=== PATIENT | female | born 1960 | race Caucasian/White ===

== ENCOUNTER 2017-03-01 05:17 | Inpatient (IN) | payer MEDICARE, SELFPAY ==
[~2017-03-01 05:17] MED LIST: ALEVE220 M3 PO; AMITRIPTYLINE H10 M1 PO; AMOXIL500 MG PO; CALCIUM 600 W/V1 TAB; CONCERTA54 MG PO; CRESTOR5 MG/TAB PO; DICYCLOMINE HCL20 M1 PO; EFFEXOR XR150 MG; FLEXERIL; FLEXERIL10 MG; FLORICET PO; GABAPENTIN300 M1 PO; LIDOCAINE HCL30 ML MM; LOVASTATIN10 M1 PO; NEURONTIN300 M1 PO; NEURONTIN300 MG PO; NORCO 5-325 TA1 EACH PO; NORCO 5/325 TAB1 TAB PO; OMEPRAZOLE20 M3 PO; PHENERGAN W/CO120 ML PO; PRISTIQ50 MG PO; REQUIP2 MG; RITALIN LA40 M1 PO; RITALIN20 M1 PO; RITALIN20 MG; TRAMADOL HCL50 MG; TUMS200 MG PO; VITAMIN D1000 UNI2 PO; WELLBUTRIN PO; WELLBUTRIN SR100 M2 PO; XANAX0.5 M1 PO; ZITHROMAX250MG Z-PAK PO; ZOFRAN ODT4 MG PO; ZYPREXA10 MG PO; ZYPREXA5 MG
--- NOTE | 2017-03-02 02:14 | NUR ---
2330 CHARTING ACCIDENTALLY ENTERED FOR 1130 TIME ON 03/01/17
[2017-03-02] MEDS ORDERED: HYDROCODON-ACE1 EA16 PO (15:01)
[2017-03-02] MEDS ORDERED: COLACE100 M1 PO (15:02)
[2017-03-02] MEDS ORDERED: PROTONIX40 M2 PO (15:02)
[2017-03-26] MEDS ORDERED: NAPROSYN500 M1 PO (22:39)
== END 2017-03-02 15:38 | DRG 328 ==
LOC: SHSB 05:17 → ORW 07:19 → BURN 09:44
PROVIDERS: ADMIT Surgery
PROC: 0BQS4ZZ (ICD-10-PCS; principal; 2017-03-01)
PROC: 0DV44ZZ Restriction of Esophagogastric Junction, Percutaneous Endoscopic Approach (ICD-10-PCS; 2017-03-01)
DX: K44.9 Diaphragmatic hernia without obstruction or gangrene (principal); F31.9 Bipolar disorder, unspecified; K21.9 Gastro-esophageal reflux disease without esophagitis; G25.81 Restless legs syndrome; Z87.891 Personal history of nicotine dependence
CPT/HCPCS: C9113; J0131; J0690; J1170; J1650; J2250; J2765; J3010; J7030

== ENCOUNTER 2017-03-05 12:30 | Inpatient (IN) | payer MEDICARE, SELFPAY ==
[~2017-03-05 12:30] MED LIST changes: +COLACE100 M1 PO; +HYDROCODON-ACE1 EA16 PO; +PROTONIX40 M2 PO
[2017-03-05 13:45] LABS: BASO % 0.2 % (0-2); EOS % 0.2 % (0-7); HCT-HEMATOCRIT 41.3 % (34.0-49.0); HGB-HEMOGLOBIN 14.6 gm/dl (12.0-15.5); IMMATURE GRANULOCYTES ABSOLUTE 0.02 tho/cmm (0-0.03); IMMATURE GRANULOCYTES PERCENT 0.2 % (0-0.3); LYMPH % 8.8 % (20-45); LYMPH ABSOLUTE COUNT 0.8 tho/cmm (0.8-4.5); MCH (MEAN CORPUSCULAR HGB) 32.4 pg (28.0-32.0); MCHC MEAN CORPUSCULAR HGB CONC 35.4 % (32.0-36.0); MCV (MEAN CELL VOLUME) 91.6 fl (82.0-96.0); MEAN PLATELET VOLUME 9.7 cmc (9.4-12.4); MONO % 6.4 % (0-12); MONOCYTE ABSOLUTE COUNT 0.6 tho/cmm (0.0-1.2); NEUTROPHIL ABSOLUTE COUNT 7.5 tho/cmm (1.6-8.0); NEUTROPHIL-AUTOMATED 7.5 tho/cmm (1.6-8.0); NEUTROPHILS % 84.2 % (40-80); PLATELET COUNT 238 tho/cmm (150-450); RED BLOOD COUNT 4.51 mil/cmm (4.00-5.20); RED CELL DISTRIBUTION WIDTH 13.3 % (12.4-16.4); WHITE BLOOD COUNT 8.9 tho/cmm (4.0-10.0)
[2017-03-05 13:50] LABS: URINE BILIRUBIN SMALL (NEG); URINE BLOOD LARGE (NEG); URINE GLUCOSE (UA) NEGATIVE (NEG); URINE KETONE MODERATE (NEG); URINE LEUKOCYTE ESTERASE POSITIVE (NEG); URINE NITRITE POSITIVE (NEG); URINE PROTEIN MODERATE (NEG)
[2017-03-05 13:52] LABS: URINE APPEARANCE HAZY; URINE COLOR BROWN
[2017-03-05 13:59] LABS: ALBUMIN 3.7 g/dl (3.5-5.0); ALKALINE PHOSPHATASE 72 U/L (33-138); ALT/SGPT 38 U/L (12-78); ANION GAP 15 mmol/L (0-20); AST/SGOT 37 U/L (10-40); BILIRUBIN,TOTAL 0.6 mg/dl (0-1.5); BLOOD UREA NITROGEN 10 mg/dl (6-24); CARBON DIOXIDE-VENOUS 24 mmol/L (22-32); CHLORIDE 102 mmol/l (96-110); CREATININE 0.91 mg/dl (0.50-1.10); GLUCOSE 107 mg/dL (70-110); LIPASE 200 U/L (73-393); POTASSIUM 3.6 mmol/L (3.7-5.1); SODIUM 137 mmol/L (135-145); eGFR VALUE FOR BLACK 80 mL/Min
[2017-03-05 14:01] LABS: URINE BACTERIA 2+; URINE RBC 15-20 /[HPF] (0-5)
[2017-03-06 07:08] LABS: BASO % 0.5 % (0-2); EOS % 0.9 % (0-7); HCT-HEMATOCRIT 34.9 % (34.0-49.0); HGB-HEMOGLOBIN 12.1 gm/dl (12.0-15.5); IMMATURE GRANULOCYTES ABSOLUTE 0.01 tho/cmm (0-0.03); IMMATURE GRANULOCYTES PERCENT 0.2 % (0-0.3); LYMPH % 20.4 % (20-45); LYMPH ABSOLUTE COUNT 0.9 tho/cmm (0.8-4.5); MCH (MEAN CORPUSCULAR HGB) 32.1 pg (28.0-32.0); MCHC MEAN CORPUSCULAR HGB CONC 34.7 % (32.0-36.0); MCV (MEAN CELL VOLUME) 92.6 fl (82.0-96.0); MEAN PLATELET VOLUME 9.2 cmc (9.4-12.4); MONO % 7.9 % (0-12); MONOCYTE ABSOLUTE COUNT 0.3 tho/cmm (0.0-1.2); NEUTROPHILS % 70.1 % (40-80); PLATELET COUNT 226 tho/cmm (150-450); RED BLOOD COUNT 3.77 mil/cmm (4.00-5.20); RED CELL DISTRIBUTION WIDTH 13.5 % (12.4-16.4)
[2017-03-06 07:14] LABS: WHITE BLOOD COUNT 4.3 tho/cmm (4.0-10.0)
[2017-03-06 07:26] LABS: ANION GAP 11 mmol/L (0-20); BLOOD UREA NITROGEN 6 mg/dl (6-24); CALCIUM 8.3 mg/dl (8.5-10.5); CARBON DIOXIDE-VENOUS 25 mmol/L (22-32); CHLORIDE 108 mmol/l (96-110); CREATININE 0.78 mg/dl (0.50-1.10); GLUCOSE 94 mg/dL (70-110); POTASSIUM 3.4 mmol/L (3.7-5.1); SODIUM 141 mmol/L (135-145); eGFR VALUE FOR BLACK >90 mL/Min
[2017-03-06] MEDS ORDERED: LEVAQUIN500 M1 PO (10:21)
[2017-03-26] MEDS ORDERED: NAPROSYN500 M1 PO (22:39)
== END 2017-03-06 13:19 | DRG 392 ==
LOC: EDMED 12:30 → EMR2 15:34 → BURN 16:15
PROVIDERS: Emergency Medicine; ADMIT Surgery
PROC: 05HC33Z Insertion of Infusion Device into Left Basilic Vein, Percutaneous Approach (ICD-10-PCS; principal; 2017-03-05)
PROC: B54NZZA Ultrasonography of Left Upper Extremity Veins, Guidance (ICD-10-PCS; 2017-03-05)
DX: K52.9 Noninfective gastroenteritis and colitis, unspecified (principal); F20.9 Schizophrenia, unspecified; N39.0 Urinary tract infection, site not specified; K92.1 Melena; E78.5 Hyperlipidemia, unspecified; K21.9 Gastro-esophageal reflux disease without esophagitis; F41.9 Anxiety disorder, unspecified; F17.210 Nicotine dependence, cigarettes, uncomplicated; Z98.890 Other specified postprocedural states; Z79.899 Other long term (current) drug therapy
CPT/HCPCS: C1751; C9113; J0696; J1170; J2405; J7030; Q9967